=== PATIENT | male | born 2000 | race Caucasian/White ===

== ENCOUNTER 2022-09-21 18:05 | Emergency (ER) | payer OTHER ==
[~2022-09-21] VITALS: Ht 190.5 cm; Wt 117.9 kg
[2022-09-21 18:16] VITALS: BP 139/88
== END 2022-09-21 19:59 | disposition home or self-care (01) ==
LOC: ER 18:05
DX: N50.811 Right testicular pain (principal)
CPT/HCPCS: 76870; 96372; 99284-25; J1885